=== PATIENT | male | born 1970 | race Caucasian/White ===

== ENCOUNTER 2018-05-15 14:18 | Emergency (ER) | payer SELFPAY ==
[~2018-05-15] VITALS: Ht 177.8 cm; Wt 79.1 kg
[~2018-05-15 14:18] MED LIST: ADVIL LIQUI-GE200 MG PO; BACTRIM,SEPT1 TABLET PO; CLEOCIN300 MG PO; EXCEDRIN EXTRA1 EACH PO; HYDROCODON-ACE1 EAC7 PO; KEFLEX500 MG PO; PERCOCET 5/31 TABLET PO; TESSALON PERLE100 MG PO; TOBREX5 ML BOTH EYES; VANCOMYCIN HCL1 GM IV; ZITHROMAX Z-PA250 MG PO
[2018-05-15] MEDS ORDERED: FIORICET 50-301 EAC1 PO (16:44)
[2018-05-15] MEDS ORDERED: MOTRIN800 MG PO (16:44)
[2018-05-15 17:13] VITALS: BP 134/98
== END 2018-05-15 17:14 | disposition home or self-care (01) ==
LOC: EME 14:18
DX: R51 Headache (principal); R09.81 Nasal congestion; Z86.14 Personal history of Methicillin resistant Staphylococcus aureus infection; F17.200 Nicotine dependence, unspecified, uncomplicated
CPT/HCPCS: 70450; 99281; 99284; J1885; Q0164